=== PATIENT | female | born 1995 | race Two or more races ===

== ENCOUNTER → 2020-10-10 | Outpatient (CLI) | payer OTHER ==
--- NOTE | 2020-10-10 14:05 | REP ---
INDICATION: PAIN RT KNEE/ANA ANKLES, EVAL FOR STRESS FX. COMPARISON: None. TECHNIQUE/RADIOTRACER AND DOSE: Following the intravenous administration of 21.7 mCi technetium 99 M MDP, patient's knees are imaged in the blood flow, blood pool and delayed phases of imaging, blood pool and delayed images are also performed of the ankles and feet. FINDINGS: No abnormal blood flow or blood pooling is seen in the region of the knees, ankles or feet. The delayed images show mild symmetrical linear cortical uptake the tibial shafts which could potentially represent stress periostitis. No focal stress fracture is seen. IMPRESSION: Possible bilateral tibial stress periostitis without evidence of focal stress fracture bilaterally. <Electronically signed by Zechariah Walls > 10/10/20 [id number]
== END ==
LOC: M RAD 09:52
DX: M25.561 Pain in right knee (principal); M25.579 Pain in unspecified ankle and joints of unspecified foot
CPT/HCPCS: 78315; A9503

== ENCOUNTER 2022-12-11 16:46 | Emergency (ER) | payer OTHER ==
[~2022-12-11] VITALS: Ht 154.9 cm; Wt 70.1 kg
[2022-12-11] MEDS ORDERED: ONDANSETRON 4MG 2ML VIAL IV ONE (17:25)
[2022-12-11] MEDS ORDERED: KETOROLAC 30 MG/ML 1ML VIAL IV ONE (17:25)
[2022-12-11] MEDS ORDERED: NS 1,000 ML IV ONE (17:25)
[2022-12-11 17:27] LABS: BASO % 0.3 % (0.0-1.0); EOS % 0.5 % (0.0-3.0); HEMATOCRIT 37.2 % (36.0-47.0); HEMOGLOBIN 12.1 g/dl (12.0-15.5); LYMPH # 3.2 10^3/uL (1.5-5.0); MEAN CORPUSCULAR HEMOGLOBIN 28.5 pg (27.0-33.0); MEAN CORPUSCULAR HGB CONC 32.5 g/dl (32.0-36.5); MEAN CORPUSCULAR VOLUME 87.5 fl (80.0-96.0); MONO # 0.6 10^3/uL (0.0-0.8); MONO % 9.5 % (2.0-8.0); NEUTROPHILS # 2.2 10^3/uL (1.5-8.5); NEUTROPHILS % 36.5 % (36.0-66.0); PLATELET COUNT, AUTOMATED 401 10^3/uL (150-450); RED BLOOD COUNT 4.25 10^6/uL (4.00-5.40)
[2022-12-11 17:56] LABS: ALBUMIN 3.8 G/DL (3.2-5.2); BILIRUBIN,DIRECT 0.1 MG/DL (<0.4); BILIRUBIN,TOTAL 0.4 MG/DL (0.3-1.2); TOTAL PROTEIN 7.5 G/DL (5.7-8.2)
[2022-12-11] MEDS ORDERED: ISOVUE-370 76% 100ML VIAL As Ordered ONE (18:02)
[2022-12-11 19:34] VITALS: BP 121/57; TEMP 97.8; O2SAT 100
[2022-12-11] MEDS ORDERED: KETO10TAB PO (19:42)
[2022-12-11] MEDS ORDERED: FLOM0.4C39 PO (19:42)
[2022-12-11] MEDS ORDERED: KETOROLAC TROMETHAMINE 10 MG TAB PO ONE (19:45)
[2022-12-11] MEDS ORDERED: TAMSULOSIN 0.4 MG CAP PO ONE (19:45)
== END 2022-12-11 19:53 | disposition home or self-care (01) ==
LOC: M ED 16:46
DX: N20.1 Calculus of ureter (principal); F10.10 Alcohol abuse, uncomplicated; Z87.442 Personal history of urinary calculi; Z79.1 Long term (current) use of non-steroidal anti-inflammatories (NSAID); Z79.899 Other long term (current) drug therapy
CPT/HCPCS: 74177; 76830; 76856; 80047; 80076; 81001; 83690; 84702; 85025; 87086; 93976; 96361; 96374; 99284; J1885; J2405; Q9967